=== PATIENT | female | born 1980 | race Caucasian/White ===

== ENCOUNTER 2023-03-30 02:47 | Emergency (ER) | payer MEDICAID, SELFPAY ==
[2023-03-30 03:11] VITALS: BP 121/65; PULSE 104; RESP 22; TEMP 37.4; O2SAT 100; BMI 36.9
--- NOTE | 2023-03-30 03:21 | ED.NAVMDI1 ---
HPI - Nausea/Vomiting/Diarrhea General Chief complaint: Nausea/Vomiting/Diarrhea Stated complaint: vomiting Time Seen by Provider: 03/30/23 03:21 Source: patient Mode of arrival: Wheelchair Limitations: no limitations History of Present Illness HPI Narrative: recurrent nausea and vomiting for 2-3 days. also has migraine headache. Diarrhea x 1 since last PM. No fever. mouth is dry. Not able to keep anything down. MD elicited complaint: Reports nausea, vomiting and diarrhea Related Data Home Medications Medication Instructions Recorded Confirmed butalbital 50 mg-acetaminophen 325 1 tab PO Q4H PRN pain 03/30/23 03/30/23 mg tablet fluticasone propionate 220 2 puff inhalation PRN Breathiing 03/30/23 mcg/actuation HFA aerosol inhaler (Flovent HFA) fremanezumab-vfrm 225 mg/1.5 mL 225 mg subcut .monthly 03/30/23 03/30/23 subcutaneous auto-injector (Ajovy) hydroxychloroquine 200 mg tablet 200 mg PO DAILY 03/30/23 03/30/23 hydroxyzine HCl 10 mg tablet 10 mg PO Q8H PRN anxiety 03/30/23 03/30/23 paroxetine HCl 40 mg tablet 40 mg PO DAILY 03/30/23 03/30/23 sumatriptan succinate 50 mg tablet 50 mg PO Q2H PRN migraine headache 03/30/23 03/30/23 Allergies Allergy/AdvReac Type Severity Reaction Status Date / Time No Known Drug Allergies Allergy Verified 03/30/23 03:15 Review of Systems ROS Status of ROS 10 or more systems reviewed and unremarkable except as noted in history and below PFSH PFSH Social History Smoking status: Current every day smoker Exam Constitutional Vital Signs, click to edit/add: Last Vital Signs Temp 99.3 F 03/30/23 03:11 Pulse 104 H 03/30/23 03:11 Resp 22 03/30/23 03:11 BP 121/65 03/30/23 03:11 Pulse Ox 100 03/30/23 03:11 O2 Del Method Room Air 03/30/23 03:11 Common normals: oriented x3, alert and well nourished [facility] Common normals: normocephalic Eye Common normals: EOMs intact bilaterally and conjunctivae normal Respiratory Common normals: normal respiratory effort, no retractions, no use of accessory muscles and clear to auscultation bilaterally Cardio Common normals: regular rate, regular rhythm and S1 normal heart sound GI Common normals: soft to palpation and non-tender Extremity Common normals: normal to inspection and full ROM Neuro Common normals: oriented x3, CN's II-XII intact bilaterally, moves all extremities, no focal motor deficits and no sensory deficits noted Psych Appearance: grossly normal Course Vital Signs Vital signs: Vital Signs Temperature 99.3 F 03/30/23 03:11 Pulse Rate 104 H 03/30/23 03:11 Respiratory Rate 22 03/30/23 03:11 Blood Pressure 121/65 03/30/23 03:11 Pulse Oximetry 100 03/30/23 03:11 Oxygen Delivery Method Room Air 03/30/23 03:11 Temperature 99.3 F 03/30/23 03:11 Pulse Rate 104 H 03/30/23 03:11 Respiratory Rate 22 03/30/23 03:11 Blood Pressure 121/65 03/30/23 03:11 Pulse Oximetry 100 03/30/23 03:11 Oxygen Delivery Method Room Air 03/30/23 03:11 MDM - Nausea/Vomiting/Diarrhea MDM Narrative Medical decision making narrative: patient presented with recurrent vomiting . Then developed a migraine and also one episode of diarrhea. Found to have hypokalemia for which she is receiving IV supplementation. Treated for her nausea and migraine and is feeling better. Does have elevated WBC of 17 which is felt to be demargination related to recurrent vomiting. Anticipate discharge once she has completed her potassium supplementation and can tolerate PO fluids. Care transferred to Dr Calabrese at change of shift Lab Data Labs: Lab Results 03/30/23 Range/Units 03:18 WBC 17.4 H (4.0-11.0) 10^3/uL RBC 4.03 L (4.20-5.40) 10^6/uL Hgb 12.6 (12.0-16.0) g/dL Hct 35.1 L (36.0-48.0) % MCV 87.1 (81.0-99.0) fL MCH 31.3 (26.7-34.0) pg MCHC 35.9 H (29.9-35.2) g/dL RDW 12.1 (11.0-15.0) % Plt Count 186 (150-450) 10^3/uL MPV 10.1 (9.5-13.5) fL Neut % (Auto) 89.9 H (43.0-75.0) % Lymph % (Auto) 2.6 L (20.5-60.0) % [place] % (Auto) 6.7 (1.7-12.0) % Eos % (Auto) 0.0 L (0.9-7.0) % Baso % (Auto) 0.2 (0.2-2.0) % Neut # (Auto) 15.6 H (1.4-6.5) 10^3/uL Lymph # (Auto) 0.5 L (1.2-3.8) 10^3/uL [place] # (Auto) 1.2 H (0.3-0.8) 10^3/uL Eos # (Auto) 0.0 (0.0-0.7) 10^3/uL Baso # (Auto) 0.0 (0.0-0.1) 10^3/uL Abs Immat Gran (auto) 0.11 H (0.00-0.03) 10^3/uL Imm/Tot Granulo (auto) 0.6 H (0.0-0.5) % Sodium 134 L (136-145) mmol/L Potassium 2.6 L* (3.5-5.1) mmol/L Chloride 99 (98-107) mmol/L Carbon Dioxide 19.0 L (21.0-32.0) mmol/L Anion Gap 18.6 BUN 9.0 (7.0-18.0) mg/dL Creatinine 1.07 H (0.55-1.02) mg/dL Est GFR ( Amer) >60 (>=60) Est GFR (Non-Af Amer) 57 L (>=60) BUN/Creatinine Ratio 8.4 Glucose 136 H (74-106) mg/dL Lactate 2.6 H* (0.4-2.0) mmol/L Calcium 8.4 L (8.5-10.1) mg/dL Total Bilirubin 0.9 (0.2-1.0) mg/dL AST 8 L (15-37) U/L ALT 11 L (14-59) U/L Alkaline Phosphatase 79 (46-116) U/L Total Protein 7.1 (6.4-8.2) g/dL Albumin 3.1 L (3.4-5.0) g/dL Globulin 4.0 g/dL Albumin/Globulin Ratio 0.8 Lipase 17.0 L (73.0-393.0) U/L Discharge Plan Discharge Chief Complaint: Nausea/Vomiting/Diarrhea Clinical Impression: Gastroenteritis, Acute hypokalemia Patient Disposition: Still a Patient Prescriptions / Home Meds: No Action butalbital-acetaminophen 50-325 mg tablet 1 tab PO Q4H PRN (Reason: pain) fluticasone propionate [Flovent HFA] 220 mcg/actuation HFA aerosol inhaler 2 puff INHALATION PRN (Reason: Breathiing) Ajovy Autoinjector 225 mg/1.5 mL auto-injector 225 mg SUBCUT .monthly hydroxychloroquine 200 mg tablet 200 mg PO DAILY hydroxyzine HCl 10 mg tablet 10 mg PO Q8H PRN (Reason: anxiety) paroxetine HCl 40 mg tablet 40 mg PO DAILY sumatriptan succinate 50 mg tablet 50 mg PO Q2H PRN (Reason: migraine headache) Referrals: Physician,Non-Staff, MD [Primary Care Provider] - 1 week
--- NOTE | 2023-03-30 03:24 | XR_ITS ---
[facility] [place] [id number] Patient Name: MELISSA PARK MRN: [id number] date: 1980 Sex: F Assigned Patient Location: ER Current Patient Location: ED.MAIN Accession/Order Number: [id number] Exam Date: 03/30/2023 03:45 Report Date: 03/30/2023 06:46 At the request of: JOHAN HAM Procedure: XR acute abdomen series EXAM: XR acute abdomen series 03/30/2023. COMPARISON STUDY: None. FINDINGS: A total of 5 images were obtained of the chest, abdomen, and pelvis. Upright and supine imaging was performed. HISTORY: vomiting XR/XR acute abdomen series IMPRESSION: 1. The cardiomediastinal contours are within normal limits. No dense consolidation, effusion, edema, failure, or pneumothorax noted. 2. Prior placement of bilateral fallopian tube occlusion devices. 3. The hepatic shadow appears enlarged. Bowel pattern does not appear to be obstructive. There is no obvious free air. No pathologic calcification suspected. 4. Sigmoid scoliosis of the thoracic and lumbar spine with multilevel thoracic and lumbar spondylitic/facet arthritic changes. This is quite apparent for example from L3-L4 through L5-S1 station levels. Electronically authenticated by: MICHELL PURI Date: 03/30/2023 06:46
[2023-03-30 03:41] LABS: Basophils Percent Auto 0.2 % (0.2-2.0); Hematocrit 35.1 % (36.0-48.0); Hemoglobin 12.6 g/dL (12.0-16.0); Immature Granulocytes Abs Auto 0.11 10^3/uL (0.00-0.03); Immature Granulocytes Pct Auto 0.6 % (0.0-0.5); Lymphocytes Absolute Auto 0.5 10^3/uL (1.2-3.8); Lymphocytes Percent Auto 2.6 % (20.5-60.0); Mean Corpuscular HGB Conc 35.9 g/dL (29.9-35.2); Mean Corpuscular Hemoglobin 31.3 pg (26.7-34.0); Mean Corpuscular Volume 87.1 fL (81.0-99.0); Mean Platelet Volume 10.1 fL (9.5-13.5); Monocytes Absolute Auto 1.2 10^3/uL (0.3-0.8); Monocytes Percent Auto 6.7 % (1.7-12.0); Neutrophils Absolute Auto 15.6 10^3/uL (1.4-6.5); Neutrophils Percent Auto 89.9 % (43.0-75.0); Platelet Count 186 10^3/uL (150-450); Red Blood Count 4.03 10^6/uL (4.20-5.40); Red Cell Distribution Width 12.1 % (11.0-15.0); White Blood Count 17.4 10^3/uL (4.0-11.0)
[2023-03-30 03:56] LABS: Alanine Aminotransferase 11 U/L (14-59); Albumin Globulin Ratio 0.8; Albumin Level 3.1 g/dL (3.4-5.0); Alkaline Phosphatase 79 U/L (46-116); Anion Gap 18.6; Aspartate Amino Transferase 8 U/L (15-37); BUN Creatinine Ratio 8.4; Bilirubin Total 0.9 mg/dL (0.2-1.0); Calcium 8.4 mg/dL (8.5-10.1); Chloride 99 mmol/L (98-107); Estimated GFR (African America >60 (>=60); Estimated GFR (Non-African Ame 57 (>=60); Glucose 136 mg/dL (74-106); Sodium 134 mmol/L (136-145); Total Protein 7.1 g/dL (6.4-8.2)
[2023-03-30] MEDS: METOCLOPRAMIDE HCL 10 MG/2 ML VIAL IVP (03:59)
[2023-03-30] MEDS: 0.9 % SODIUM CHLORIDE 1,000 ML 999 ML IV (03:59)
[2023-03-30 04:01] LABS: Potassium 2.6 mmol/L (3.5-5.1)
[2023-03-30 04:02] LABS: Lactate/Lactic Acid 2.6 mmol/L (0.4-2.0)
[2023-03-30 07:35] LABS: Lactate/Lactic Acid 0.4 mmol/L (0.4-2.0)
== END 2023-03-30 09:02 | disposition home or self-care (01) ==
PROVIDERS: Internal Medicine; Emergency Provider Emergency Medicine
DX: E87.6 Hypokalemia (principal); K52.9 Noninfective gastroenteritis and colitis, unspecified; G43.909 Migraine, unspecified, not intractable, without status migrainosus; Z79.899 Other long term (current) drug therapy; F17.210 Nicotine dependence, cigarettes, uncomplicated
CPT/HCPCS: 36415; 74022; 80053; 80076; 81003; 83605; 83690; 84484; 85025; 96361; 96374; 96375; 99285